=== PATIENT | female | born 1990 | race African-American/Black ===

== ENCOUNTER 2016-04-12 04:39 | Emergency (ER) | payer MEDICAID ==
[~2016-04-12] VITALS: Ht 167.6 cm; Wt 66.0 kg
[~2016-04-12 04:39] MED LIST: FERR325T PO; IBUP-232 PO; OXYC1TAB63 PO; PREN29TA PO; ZOFR4TAB3 SL
[2016-04-12 04:42] VITALS: BP 123/60; PULSE 77; RESP 16; TEMP 98; O2SAT 96
[2016-04-12] MEDS ORDERED: SODIUM CHLORIDE 0.9% FLUSH 5 ML FLUSH IVF PRN (05:00)
--- NOTE | 2016-04-12 05:11 | PD ---
HPI Chief Complaint: Abdominal Pain Time Seen by Provider: 05:09 Travel History International Travel<30 days: No Contact w/Intl Traveler<30days: No Traveled to known affect area: No History of Present Illness HPI 25-year-old female with history of no significant past medical issues, presents to the ER with lower abdominal discomfort and dysuria, feels like she has urinary urgency. She denies any fevers, nausea, vomiting, diarrhea, unusual vaginal discharge, or any other symptoms. Modifying Factors: None Associated Signs & Symptoms: Lower abdominal discomfort, urinary symptoms Risk Factors: None PFSH Past Medical History Hx Anticoagulant Therapy: No Cardiovascular Problems: No Chemotherapy: No Cerebrovascular Accident: No Diabetes: No Diminished Hearing: No Reproductive: Yes (OVARIAN CYST) Respiratory: No Immunizations Current: No Ulcer: Yes (STOMACH) ?: Not LMP: UNKNOWN : 2 Para: 1 : 1 Dilation and Curettage (D&C): Yes Social History Alcohol Use: Yes (OCC) Tobacco Use: Yes (03/30 PPD) Substance Use: Yes (MARIJUANA ) Allergies-Medications (Allergen,Severity, Reaction): Coded Allergies: No Known Allergies (Verified , 04/12/16) Reported Meds & Prescriptions Reported Meds & Active Scripts Active Oxycodone-Acetaminophen 5-325 mg Tab 1 Tab PO Q4H PRN Ferrous Sulfate 325 Mg Tab 325 Mg PO DAILY Ibuprofen 600 Mg Tab 600 Mg PO Q8HR PRN Plus Iron 29-1 mg ( Vit-Iron Carbonyl) 1 Tab Tab 1 Tab PO DAILY Zofran Odt (Ondansetron Odt) 4 Mg Tab 4 Mg SL Q6HR PRN Review of Systems Except as stated in HPI: all other systems reviewed are Neg Physical Exam Narrative GENERAL: Well-nourished, well-developed young -[place] female patient in no acute distress. SKIN: Warm and dry. HEAD: Normocephalic. EYES: No scleral icterus. No injection or drainage. NECK: Supple, trachea midline. CARDIOVASCULAR: Regular rate and rhythm without murmurs, gallops, or rubs. RESPIRATORY: Breath sounds equal bilaterally. No accessory muscle use. GASTROINTESTINAL: Abdomen soft, mild tenderness without guarding or rebound, nondistended. MUSCULOSKELETAL: No cyanosis, or edema. BACK: Nontender without obvious deformity. No CVA tenderness. Data Data Last Documented VS Vital Signs Date Time Temp Pulse Resp B/P Pulse Ox O2 Delivery O2 Flow Rate FiO2 04/12/16 04:42 98.0 77 16 123/60 96 Room Air Orders Complete Blood Count With Diff (04/12/16 04:59) Comprehensive Metabolic Panel (04/12/16 04:59) Lipase (04/12/16 04:59) Urinalysis - C+S If Indicated (04/12/16 04:59) Iv Access Insert/Monitor (04/12/16 04:59) Ecg Monitoring (04/12/16 04:59) Oximetry (04/12/16 04:59) Sodium Chloride 0.9% Flush (Ns Flush) (04/12/16 05:00) Ed Urine Pregnancytest Poc (04/12/16 04:59) Urine Culture (04/12/16 05:00) Labs Laboratory Tests Test 04/12/16 05:00 White Blood Count 8.4 TH/MM3 Red Blood Count 4.34 MIL/MM3 Hemoglobin 10.7 GM/DL Hematocrit 33.7 % Mean Corpuscular Volume 77.7 FL Mean Corpuscular Hemoglobin 24.7 PG Mean Corpuscular Hemoglobin 31.8 % Concent Red Cell Distribution Width 16.5 % Platelet Count 283 TH/MM3 Mean Platelet Volume 8.7 FL Neutrophils (%) (Auto) 47.8 % Lymphocytes (%) (Auto) 41.5 % Monocytes (%) (Auto) 8.9 % Eosinophils (%) (Auto) 0.7 % Basophils (%) (Auto) 1.1 % Neutrophils # (Auto) 4.0 TH/MM3 Lymphocytes # (Auto) 3.5 TH/MM3 Monocytes # (Auto) 0.8 TH/MM3 Eosinophils # (Auto) 0.1 TH/MM3 Basophils # (Auto) 0.1 TH/MM3 CBC Comment AUTO DIFF Urine Color YELLOW Urine Turbidity HAZY Urine pH 5.5 Urine Specific [place] 1.029 Urine Protein TRACE mg/dL Urine Glucose (UA) NEG mg/dL Urine Ketones NEG mg/dL Urine Occult Blood NEG Urine Nitrite NEG Urine Bilirubin NEG Urine Urobilinogen 2.0 MG/DL Urine Leukocyte Esterase LARGE Urine RBC 8 /hpf Urine WBC 24 /hpf Urine Squamous Epithelial 6 /hpf Cells Urine Mucus MOD /lpf Microscopic Urinalysis Comment CULTURE INDICATED Sodium Level 142 MEQ/L Potassium Level 3.5 MEQ/L Chloride Level 107 MEQ/L Carbon Dioxide Level 26.0 MEQ/L Anion Gap 9 MEQ/L Blood Urea Nitrogen 10 MG/DL Creatinine 0.83 MG/DL Estimat Glomerular Filtration 100 ML/MIN Rate Random Glucose 67 MG/DL Calcium Level 8.6 MG/DL Total Bilirubin 0.1 MG/DL Aspartate Amino Transf 18 U/L (AST/SGOT) Alanine Aminotransferase 18 U/L (ALT/SGPT) Alkaline Phosphatase 57 U/L Total Protein 7.0 GM/DL Albumin 3.8 GM/DL Lipase 275 U/L MDM Medical Decision Making Medical Screen Exam Complete: Yes Emergency Medical Condition: Yes Medical Record Reviewed: Yes Interpretation(s) Laboratory Tests Test 04/12/16 05:00 Hemoglobin 10.7 GM/DL (11.6-15.3) Hematocrit 33.7 % (35.0-46.0) Mean Corpuscular Volume 77.7 FL (80.0-100.0) Mean Corpuscular Hemoglobin 24.7 PG (27.0-34.0) Mean Corpuscular Hemoglobin 31.8 % Concent (32.0-36.0) Monocytes (%) (Auto) 8.9 % (0.0-8.0) Urine Turbidity HAZY (CLEAR) Urine Leukocyte Esterase LARGE (NEG) Urine RBC 8 /hpf (0-3) Urine WBC 24 /hpf (0-5) Urine Mucus MOD /lpf (OCC) Random Glucose 67 MG/DL (74-106) Total Bilirubin 0.1 MG/DL (0.2-1.0) Differential Diagnosis Urinary symptoms, lower abdominal discomfortUTI versus gastroenteritis versus Narrative Course Patient is not . Abdomen is fairly benign and I do not suspect an acute intra-abdominal process. Her urine shows a significant UTI. At this point, my plan would be to give her treatment for UTI and release her with follow-up to primary care physician. Return for any worsening in symptoms as necessary. The plan was discussed with her and she is agreeable. Diagnosis Primary Impression: Urinary tract infection Med/Other Pt SpecificInfo: Prescription(s) given Scripts Phenazopyridine (Pyridium)100 Mg Mdl399 Mg PO Q8H PRN (DYSURIA) #15 TAB Ref 0 Prov:Sanam Jiménez MD 04/12/16 Sulfamethoxazole-Trimethoprim (Bactrim DS)800-160 Mg Tab1 Tab PO BID #14 TAB Ref 0 Prov:Sanam Jiménez MD 04/12/16 Disposition: 01 DISCHARGE HOME Condition: Stable Sanam Jiménez MD Apr 12, 2016 05:11
[2016-04-12 05:13] LABS: BASOPHIL # 0.1 TH/MM3 (0-0.2); BASOPHIL % 1.1 % (0.0-2.0); EOSINOPHIL # 0.1 TH/MM3 (0-0.4); EOSINOPHIL % 0.7 % (0.0-4.0); HEMATOCRIT 33.7 % (35.0-46.0); LYMPH % 41.5 % (9.0-44.0); LYMPHOCYTE # 3.5 TH/MM3 (1.0-4.8); MEAN CELL VOLUME 77.7 FL (80.0-100.0); MEAN CORPUSCULAR HEMOGLOBIN 24.7 PG (27.0-34.0); MEAN CORPUSCULAR HGB CONC 31.8 % (32.0-36.0); MONO % 8.9 % (0.0-8.0); NEUT % 47.8 % (16.0-70.0); PLATELET COUNT 283 TH/MM3 (150-450); RED BLOOD COUNT 4.34 MIL/MM3 (4.00-5.30); RED CELL DISTRIBUTION WIDTH 16.5 % (11.6-17.2); WHITE BLOOD COUNT 8.4 TH/MM3 (4.0-11.0)
[2016-04-12 05:16] LABS: BLOOD, URINE NEG (NEG); COMMENT (UR) CULTURE INDICATED; CULTURE IF INDICATED CULTURE INDICATED; GLUCOSE,URINE NEG (NEG); KETONE, URINE NEG (NEG); MUCUS URINE MOD /lpf (OCC); NITRITE,URINE NEG (NEG); PH, URINE 5.5 (5.0-8.5); SQUAMOUS EPITHELIAL CELL URINE 6 /hpf (0-5); URINE COLOR YELLOW (YELLW/STRAW)
[2016-04-12 05:31] LABS: HEMO FLAGS AUTO DIFF
[2016-04-12 05:36] LABS: ANION GAP 9 MEQ/L (5-15); AST (GOT) 18 U/L (15-37); BLOOD UREA NITROGEN 10 MG/DL (7-18); CHLORIDE 107 MEQ/L (98-107); GLOMERULAR FILTRATION RATE 100 ML/MIN (>89); POTASSIUM 3.5 MEQ/L (3.5-5.1); SODIUM (NA) 142 MEQ/L (136-145)
[2016-04-12 05:40] LABS: ALKALINE PHOSPHATASE 57 U/L (45-117); ALT (GPT) 18 U/L (10-53); TOTAL BILIRUBIN ADULT 0.1 MG/DL (0.2-1.0)
[2016-04-12] MEDS ORDERED: IBUPROFEN 600 MG TAB PO ONE (05:45)
[2016-04-12] MEDS ORDERED: PHEN0.4T PO (05:45)
[2016-04-12] MEDS ORDERED: BACT800T5 PO (05:45)
[2016-04-12] MEDS ORDERED: SULFAMETHOXAZOLE-TRIMETHOPRIM DS 800-160 MG TAB PO ONE (05:45)
[2016-04-12 06:05] VITALS: BP 108/58
[2016-04-12 06:22] LABS: ACANTHOCYTES OCC (NORMAL); PLATELET ESTIMATE SMEAR NORMAL (NORMAL); PLATELET MORPHOLOGY NORMAL (NORMAL); SCAN/DIFF AUTO DIFF CONFIRMED; TARGET CELLS 1+ (NORMAL)
== END 2016-04-12 06:00 | disposition home or self-care (01) ==
LOC: NEPC 04:39
DX: N39.0 Urinary tract infection, site not specified (principal); B96.89 Other specified bacterial agents as the cause of diseases classified elsewhere
CPT/HCPCS: 80053; 81001; 83690; 84703; 85025; 87086; 99284

== ENCOUNTER 2016-04-29 16:31 | Emergency (ER) | payer MEDICAID ==
[~2016-04-29] VITALS: Ht 167.6 cm; Wt 70.5 kg
[~2016-04-29 16:31] MED LIST changes: +BACT800T5 PO; -FERR325T PO; -IBUP-232 PO; -OXYC1TAB63 PO; +PHEN0.4T PO; -PREN29TA PO; -ZOFR4TAB3 SL
[2016-04-29 16:32] VITALS: BP 128/85; PULSE 76; RESP 12; TEMP 98.2; O2SAT 97
--- NOTE | 2016-04-29 17:47 | PD ---
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 Per patient she had a seizure in the past. Per patient she's been having for this and discharged with back pain. No urinary problems. No bowel movement issues. Per patient she feels like she has a fever and chills but hasn't checked her actual temperature. She states that the pain in the back is 5 out of 10. Per patient the discharge started with bloody and then has been clear. Per patient his been ongoing. She denies any other medical problem. Denies . No abdominal pain. No chest pain. No shortness of breath. Has not seen anybody for this. Patient was here 2 weeks ago for UTI. PFSH Past Medical History Hx Anticoagulant Therapy: No Cardiovascular Problems: No Chemotherapy: No Cerebrovascular Accident: No Diabetes: No Diminished Hearing: No Reproductive: Yes (OVARIAN CYST) Respiratory: No Immunizations Current: No Ulcer: Yes (STOMACH) ?: Not LMP: 02/27/2016 : 2 Para: 1 : 1 Dilation and Curettage (D&C): Yes Past Surgical History Surgical History: No Previous Surgery Social History Alcohol Use: Yes (OCC) Tobacco Use: Yes (1/2 PPD) Substance Use: Yes (MARIJUANA ) Allergies-Medications (Allergen,Severity, Reaction): Coded Allergies: No Known Allergies (Verified , 04/29/16) Reported Meds & Prescriptions Reported Meds & Active Scripts Active No Active Prescriptions or Reported Medications Review of Systems Except as stated in HPI: all other systems reviewed are Neg Physical Exam Narrative GENERAL: SKIN: Warm and dry. HEAD: Atraumatic. Normocephalic. EYES: Pupils equal and round 4 mm reactive to light and accommodation. No scleral icterus. No injection or drainage. ENT: No nasal bleeding or discharge. Mucous membranes pink and moist. Tongue is midline. No uvula deviation. NECK: Trachea midline. No JVD. CARDIOVASCULAR: Regular rate and rhythm. No murmurs, S3, S4. RESPIRATORY: No accessory muscle use. Clear to auscultation. Breath sounds equal bilaterally. GASTROINTESTINAL: Abdomen soft, non-tender, nondistended. Hepatic and splenic margins not palpable. MUSCULOSKELETAL: Extremities without clubbing, cyanosis, or edema. No obvious deformities. Full range of motion of the upper and lower extremities bilaterally. 2+ pulses bilaterally. NEUROLOGICAL: Awake and alert. No obvious cranial nerve deficits. Motor grossly within normal limits. Five out of 5 muscle strength in the arms and legs. Normal speech. PSYCHIATRIC: Appropriate mood and affect; insight and judgment normal. Data Data Last Documented VS Vital Signs Date Time Temp Pulse Resp B/P Pulse Ox O2 Delivery O2 Flow Rate FiO2 04/29/16 17:06 17 04/29/16 16:32 98.2 76 128/85 97 Orders Urinalysis - C+S If Indicated (04/29/16 16:39) Ed Urine Pregnancytest Poc (04/29/16 16:40) Gc And Chlamydia Pcr (04/29/16 16:54) Wet Prep Profile (04/29/16 16:54) Urine Culture (04/29/16 18:20) Metronidazole (Flagyl) (04/29/16 19:30) Labs Laboratory Tests Test 04/29/16 18:20 Urine Color YELLOW Urine Turbidity HAZY Urine pH 6.0 Urine Specific [place] 1.024 Urine Protein TRACE mg/dL Urine Glucose (UA) NEG mg/dL Urine Ketones NEG mg/dL Urine Occult Blood SMALL Urine Nitrite NEG Urine Bilirubin NEG Urine Urobilinogen LESS THAN 2.0 MG/DL Urine Leukocyte Esterase MOD Urine RBC 2 /hpf Urine WBC 12 /hpf Urine Squamous Epithelial 5 /hpf Cells Urine Mucus FEW /lpf Microscopic Urinalysis Comment CULTURE INDICATED Clue Cells (Wet Prep) NONE SEEN Vaginal Trichomonas (Wet Prep) PRESENT Vaginal Yeast (Wet Prep) NONE SEEN MDM Medical Decision Making Medical Screen Exam Complete: Yes Emergency Medical Condition: Yes Medical Record Reviewed: Yes Interpretation(s) Wet prep positive for trichomonas UA negative Differential Diagnosis UTI versus STD versus vaginitis versus vaginal discharge Narrative Course 25-year-old female that presents to the ED for evaluation of vaginal discharge and pain. Patient was properly examined and was found to have signs and symptoms concerning for vaginitis. Labs ordered. Pelvic exam done and showed positive for Trichomonas. Patient was given 5.. Patient did have a UTI. Patient was given prescription for this. Follow with PCP. See ED worsening symptoms. Diagnosis Primary Impression: Trichomonas vaginitis Additional Impression: UTI (urinary tract infection) Qualified Code: N30.00 - Acute cystitis without hematuria Patient Instructions: General Instructions Additional Instructions: Take med as prescribed. F/u with PCP. See ED if worst No sex for two weeks. tylenol or motrin for pain. Med/Other Pt SpecificInfo: Prescription(s) given Scripts No Active Prescriptions or Reported Meds Disposition: 01 DISCHARGE HOME Condition: Stable Jed Alvarez Apr 29, 2016 17:47
[2016-04-29 19:03] LABS: BLOOD, URINE SMALL (NEG); COMMENT (UR) CULTURE INDICATED; CULTURE IF INDICATED CULTURE INDICATED; GLUCOSE,URINE NEG (NEG); KETONE, URINE NEG (NEG); MUCUS URINE FEW /lpf (OCC); NITRITE,URINE NEG (NEG); SQUAMOUS EPITHELIAL CELL URINE 5 /hpf (0-5); URINE COLOR YELLOW (YELLW/STRAW)
[2016-04-29] MEDS ORDERED: PHEN0.4T PO (19:27)
[2016-04-29] MEDS ORDERED: CIPR-9 PO (19:28)
[2016-04-29] MEDS ORDERED: metroNIDAZOLE 500 MG TAB PO ONE (19:30)
[2016-04-29 20:08] VITALS: BP 124/79; PULSE 72; RESP 16; O2SAT 98
[2016-04-29 20:58] LABS: CHLAMYDIA PCR NOT DETECTED (NOT DETECT); NEISSERIA PCR NOT DETECTED (NOT DETECT)
== END 2016-04-29 20:20 | disposition home or self-care (01) ==
LOC: NEPE 16:31
DX: A59.01 Trichomonal vulvovaginitis (principal); N30.00 Acute cystitis without hematuria; M54.9 Dorsalgia, unspecified; F17.200 Nicotine dependence, unspecified, uncomplicated; Z86.69 Personal history of other diseases of the nervous system and sense organs; Z87.42 Personal history of other diseases of the female genital tract; Z87.19 Personal history of other diseases of the digestive system
CPT/HCPCS: 81001; 84703; 87086; 87210; 87491; 87591; 99283

== ENCOUNTER 2016-07-27 06:46 | Emergency (ER) | payer SELFPAY ==
[~2016-07-27] VITALS: Ht 167.6 cm; Wt 60.0 kg
[~2016-07-27 06:46] MED LIST changes: -BACT800T5 PO; +CIPR-9 PO
[2016-07-27 06:48] VITALS: BP 141/65; PULSE 67; RESP 16; TEMP 98.7; O2SAT 97
--- NOTE | 2016-07-27 07:32 | PD ---
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 In the past similar presentation was bacterial vaginosis. No fever or vomiting. She reports monogamous relationship with 1 partner. Location genitourinary. Severity [id number]. Onset gradual. PFSH Past Medical History Hx Anticoagulant Therapy: No Cardiovascular Problems: No Chemotherapy: No Cerebrovascular Accident: No Diabetes: No Diminished Hearing: No Reproductive: Yes (OVARIAN CYST) Respiratory: No Immunizations Current: No Ulcer: Yes (STOMACH) Influenza Vaccination: No ?: Unknown : 2 Para: 1 : 1 Dilation and Curettage (D&C): Yes Past Surgical History Surgical History: No Previous Surgery Social History Alcohol Use: Yes (daily) Tobacco Use: Yes (1/2 PPD) Substance Use: No (smokes MARIJUANA ) Allergies-Medications (Allergen,Severity, Reaction): Coded Allergies: No Known Allergies (Verified , 07/27/16) Reported Meds & Prescriptions Reported Meds & Active Scripts Active Flagyl (Metronidazole) 500 Mg Tab 500 Mg PO BID 7 Days Review of Systems Except as stated in HPI: all other systems reviewed are Neg General / Constitutional: No: Fever Gastrointestinal: No: Nausea, Vomiting, Abdominal Pain Physical Exam Narrative GENERAL: 26-year-old female pleasant well-nourished well-developed and acute distress : Normal vulva. Minimal thick white discharge. No CMT. No adnexal mass or tenderness. SKIN: Focused skin assessment warm/dry. HEAD: Atraumatic. Normocephalic. EYES: Pupils equal and round. No scleral icterus. No injection or drainage. ENT: No nasal bleeding or discharge. Mucous membranes pink and moist. NECK: Trachea midline. No JVD. CARDIOVASCULAR: Regular rate and rhythm. No murmur appreciated. RESPIRATORY: No accessory muscle use. Clear to auscultation. Breath sounds equal bilaterally. GASTROINTESTINAL: Soft. Minimal suprapubic tenderness with deep palpation. No flank tenderness. MUSCULOSKELETAL: No obvious deformities. No clubbing. No cyanosis. No edema. NEUROLOGICAL: Awake and alert. No obvious cranial nerve deficits. Motor grossly within normal limits. Normal speech. PSYCHIATRIC: Appropriate mood and affect; insight and judgment normal. Data Data Last Documented VS Vital Signs Date Time Temp Pulse Resp B/P Pulse Ox O2 Delivery O2 Flow Rate FiO2 07/27/16 06:48 98.7 67 16 141/65 97 Vital signs reviewed Orders Gc And Chlamydia Pcr (07/27/16 07:43) Wet Prep Profile (07/27/16 07:43) Ua Includes Microscopic (07/27/16 07:43) Ed Urine Pregnancytest Poc (07/27/16 07:43) Metronidazole (Flagyl) (07/27/16 08:15) Labs Laboratory Tests Test 07/27/16 07/27/16 07:30 07:40 Urine Color YELLOW Urine Turbidity HAZY Urine pH 6.0 Urine Specific [place] 1.018 Urine Protein NEG mg/dL Urine Glucose (UA) NEG mg/dL Urine Ketones NEG mg/dL Urine Occult Blood NEG Urine Nitrite NEG Urine Bilirubin NEG Urine Urobilinogen LESS THAN 2.0 MG/DL Urine Leukocyte Esterase TRACE Urine RBC 2 /hpf Urine WBC 3 /hpf Urine Squamous Epithelial 7 /hpf Cells Urine Bacteria FEW /hpf Urine Mucus FEW /lpf Microscopic Urinalysis Comment Clue Cells (Wet Prep) PRESENT Vaginal Trichomonas (Wet Prep) NONE SEEN Vaginal Yeast (Wet Prep) NONE SEEN MDM Medical Decision Making Medical Screen Exam Complete: Yes Emergency Medical Condition: Yes Medical Record Reviewed: Yes Differential Diagnosis IUP, UTI, ectopic , ov torsion, appendicitis, TOA, cervicitis, BV, Trichomoniasis, ov cyst, hernia, mittelschmerz, pain from menstruation Narrative Course point of care urinalysis for is negative UA low probability uti wet prep positive for bv flagyl script f/u w employment training specialist, Dr Underwood senior publications specialist for [facility] today Diagnosis Primary Impression: BV (bacterial vaginosis) Referrals: Rachana Underwood MD 1 week Additional Instructions: You have a choice when it comes to health care, and we are glad that you chose [facility]. Hopefully, we have met your expectations on today's visit. You are welcome to return to [facility] at any time, as we are committed to meeting the health care needs of our community. PLEASE AVOID ALCOHOL WHEN YOU TAKE FLAGYL. Med/Other Pt SpecificInfo: Prescription(s) given Scripts Metronidazole (Flagyl)500 Mg Cck175 Mg PO BID 7 Days Ref 0 Prov:Josue Ramírez MD 07/27/16 Disposition: 01 DISCHARGE HOME Condition: Stable Josue Ramírez MD July 27, 2016 07:32 Josue Ramírez MD July 27, 2016 07:32
[2016-07-27 08:05] LABS: BACTERIA, URINE FEW /hpf; BLOOD, URINE NEG (NEG); GLUCOSE,URINE NEG (NEG); KETONE, URINE NEG (NEG); MUCUS URINE FEW /lpf (OCC); NITRITE,URINE NEG (NEG); SQUAMOUS EPITHELIAL CELL URINE 7 /hpf (0-5); URINE COLOR YELLOW (YELLW/STRAW)
[2016-07-27] MEDS ORDERED: METR-1 PO (08:13)
[2016-07-27] MEDS ORDERED: metroNIDAZOLE 500 MG TAB PO ONE (08:15)
[2016-07-27 10:23] LABS: CHLAMYDIA PCR NOT DETECTED (NOT DETECT); NEISSERIA PCR NOT DETECTED (NOT DETECT)
== END 2016-07-27 08:28 | disposition home or self-care (01) ==
LOC: NEPE 06:46
DX: N76.0 Acute vaginitis (principal); F17.200 Nicotine dependence, unspecified, uncomplicated; Z87.42 Personal history of other diseases of the female genital tract; Z87.19 Personal history of other diseases of the digestive system
CPT/HCPCS: 81001; 84703; 87210; 87491; 87591; 99283

== ENCOUNTER 2016-09-04 09:54 | Emergency (ER) | payer SELFPAY ==
[~2016-09-04] VITALS: Ht 167.6 cm; Wt 60.0 kg
[~2016-09-04 09:54] MED LIST changes: -CIPR-9 PO; +METR-1 PO; -PHEN0.4T PO
[2016-09-04 09:55] VITALS: BP 110/66; PULSE 72; RESP 20; TEMP 97.5; O2SAT 99
--- NOTE | 2016-09-04 10:22 | PD ---
HPI . 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 She rates the pain as severe without any further radiation. She has a very hard time describing the type of pain. She also admits to vaginal discharge for over one week. She describes it as thick and white. She says there is a chance of . She admits to high risk sexual behavior. Have a primary care provider or [facility]. She had one episode of vomiting today. At this present time she denies any nausea, vomiting, diarrhea or constipation. She denies any chest pain or other symptoms. PFSH Past Medical History Hx Anticoagulant Therapy: No Cardiovascular Problems: No Chemotherapy: No Cerebrovascular Accident: No Diabetes: No Diminished Hearing: No Reproductive: Yes (OVARIAN CYST) Respiratory: No Immunizations Current: No Ulcer: Yes (STOMACH) ?: Not LMP: 08/12/16 : 2 Para: 1 : 1 Dilation and Curettage (D&C): Yes Social History Alcohol Use: Yes (daily) Tobacco Use: Yes (1/2 PPD) Substance Use: No (smokes MARIJUANA ) Allergies-Medications (Allergen,Severity, Reaction): Coded Allergies: No Known Allergies (Verified , 07/27/16) Reported Meds & Prescriptions Reported Meds & Active Scripts Active Flagyl (Metronidazole) 500 Mg Tab 500 Mg PO BID 7 Days Flagyl (Metronidazole) 500 Mg Tab 500 Mg PO BID 7 Days Review of Systems General / Constitutional: No: Fever Eyes: No: Visual changes HENT: No: Headaches Cardiovascular: No: Chest Pain or Discomfort Respiratory: No: Shortness of Breath Gastrointestinal: Positive: Abdominal Pain (RLQ) Genitourinary: Positive: Discharge, No: Dysuria Musculoskeletal: No: Pain Skin: No Rash Neurologic: No: Weakness Psychiatric: No: Depression Endocrine: No: Polydipsia Hematologic/Lymphatic: No: Easy Bruising Physical Exam Narrative GENERAL: AAO x 3, no acute distress, Well-nourished, well-developed patient. SKIN: Warm and dry. No visible rashes or bruising. HEAD: Normocephalic and atraumatic. EYES: No scleral icterus. No injection or drainage. EOM intact, PERRLA ENT: No nasal drainage noted. Mucous membranes pink. Airway patent. NECK: Supple, trachea midline. No JVD. CARDIOVASCULAR: Regular rate and rhythm without murmurs, gallops, or rubs. RESPIRATORY: Breath sounds equal bilaterally. No accessory muscle use. No rhonchi or rales. GASTROINTESTINAL: Abdomen soft, non-tender, nondistended. Cannot reproduce pain on examination, but patient is moaning throughout encounter GENITAL: Mo RN present: no vaginal discharge appreciated on pelvic exam, there is a slight odor in the vaginal area. EXTREMITIES: No cyanosis or edema. BACK: Nontender without obvious deformity. No CVA tenderness. NEURO: CN II-12 intact, technical system analyst stenght normal b/l, UE and LE 5/5, no focal deficits PSYCH: AAO x 3, normal affect. Data Data Last Documented VS Vital Signs Date Time Temp Pulse Resp B/P Pulse Ox O2 Delivery O2 Flow Rate FiO2 09/04/16 09:55 97.5 72 20 110/66 99 Room Air Orders Gc And Chlamydia Pcr (09/04/16 10:27) Wet Prep Profile (09/04/16 10:27) Ed Urine Pregnancytest Poc (09/04/16 10:27) Complete Blood Count With Diff (09/04/16 10:31) Comprehensive Metabolic Panel (09/04/16 10:31) Lipase (09/04/16 10:31) Urinalysis - C+S If Indicated (09/04/16 10:31) Ct Abd/Pel W Iv Contrast(Rout) (09/04/16 10:31) Ketorolac Inj (Toradol Inj) (09/04/16 11:30) Diatrizoate Liq ( Gastroview Liq) (09/04/16 11:49) Iohexol 350 Inj (Omnipaque 350 Inj) (09/04/16 13:50) Lorazepam Inj (Ativan Inj) (09/04/16 14:45) Labs Laboratory Tests Test 09/04/16 10:45 White Blood Count 6.0 TH/MM3 Red Blood Count 4.58 MIL/MM3 Hemoglobin 12.0 GM/DL Hematocrit 36.8 % Mean Corpuscular Volume 80.3 FL Mean Corpuscular Hemoglobin 26.1 PG Mean Corpuscular Hemoglobin 32.5 % Concent Red Cell Distribution Width 15.3 % Platelet Count 254 TH/MM3 Mean Platelet Volume 8.9 FL Neutrophils (%) (Auto) 32.7 % Lymphocytes (%) (Auto) 53.6 % Monocytes (%) (Auto) 11.6 % Eosinophils (%) (Auto) 1.1 % Basophils (%) (Auto) 1.0 % Neutrophils # (Auto) 1.9 TH/MM3 Lymphocytes # (Auto) 3.2 TH/MM3 Monocytes # (Auto) 0.7 TH/MM3 Eosinophils # (Auto) 0.1 TH/MM3 Basophils # (Auto) 0.1 TH/MM3 CBC Comment DIFF FINAL Differential Comment Urine Color YELLOW Urine Turbidity CLEAR Urine pH 6.5 Urine Specific [place] 1.018 Urine Protein NEG mg/dL Urine Glucose (UA) NEG mg/dL Urine Ketones NEG mg/dL Urine Occult Blood NEG Urine Nitrite NEG Urine Bilirubin NEG Urine Urobilinogen LESS THAN 2.0 MG/DL Urine Leukocyte Esterase SMALL Urine RBC 2 /hpf Urine WBC 7 /hpf Urine Squamous Epithelial 2 /hpf Cells Urine Bacteria RARE /hpf Urine Mucus FEW /lpf Microscopic Urinalysis Comment CULT NOT INDICATED Clue Cells (Wet Prep) PRESENT Vaginal Trichomonas (Wet Prep) NONE SEEN Vaginal Yeast (Wet Prep) NONE SEEN Sodium Level 140 MEQ/L Potassium Level 4.1 MEQ/L Chloride Level 107 MEQ/L Carbon Dioxide Level 25.9 MEQ/L Anion Gap 7 MEQ/L Blood Urea Nitrogen 6 MG/DL Creatinine 0.96 MG/DL Estimat Glomerular Filtration 84 ML/MIN Rate Random Glucose 75 MG/DL Calcium Level 8.7 MG/DL Total Bilirubin 0.3 MG/DL Aspartate Amino Transf 22 U/L (AST/SGOT) Alanine Aminotransferase 20 U/L (ALT/SGPT) Alkaline Phosphatase 53 U/L Total Protein 7.2 GM/DL Albumin 3.9 GM/DL Lipase 228 U/L Chlamydia trachomatis DNA NOT DETECTED (PCR) Neisseria gonorrhoeae DNA NOT DETECTED (PCR) [facility] Medical Decision Making Medical Screen Exam Complete: Yes Emergency Medical Condition: Yes Medical Record Reviewed: Yes Differential Diagnosis PID, Gali vaginitis, appendicitis, gastroenteritis, nephrolithiasis Narrative Course 26-year-old female here with complaints of right lower abdominal pain. She also has vaginal discharge. Examination was done and there are no significant abnormalities found. Labs and CT scan of the abdomen and pelvis have been ordered. Patient admits to vomiting once this morning, but denies any nausea at the present moment. I offered antiemetic and she declined. Patient has clue cells consistent with bacterial vaginosis. I provided her with the metronidazole. Laboratory Tests Test 09/04/16 10:45 White Blood Count 6.0 TH/MM3 Red Blood Count 4.58 MIL/MM3 Hemoglobin 12.0 GM/DL Hematocrit 36.8 % Mean Corpuscular Volume 80.3 FL Mean Corpuscular Hemoglobin 26.1 PG Mean Corpuscular Hemoglobin 32.5 % Concent Red Cell Distribution Width 15.3 % Platelet Count 254 TH/MM3 Mean Platelet Volume 8.9 FL Neutrophils (%) (Auto) 32.7 % Lymphocytes (%) (Auto) 53.6 % Monocytes (%) (Auto) 11.6 % Eosinophils (%) (Auto) 1.1 % Basophils (%) (Auto) 1.0 % Neutrophils # (Auto) 1.9 TH/MM3 Lymphocytes # (Auto) 3.2 TH/MM3 Monocytes # (Auto) 0.7 TH/MM3 Eosinophils # (Auto) 0.1 TH/MM3 Basophils # (Auto) 0.1 TH/MM3 CBC Comment DIFF FINAL Differential Comment Urine Color YELLOW Urine Turbidity CLEAR Urine pH 6.5 Urine Specific [place] 1.018 Urine Protein NEG mg/dL Urine Glucose (UA) NEG mg/dL Urine Ketones NEG mg/dL Urine Occult Blood NEG Urine Nitrite NEG Urine Bilirubin NEG Urine Urobilinogen LESS THAN 2.0 MG/DL Urine Leukocyte Esterase SMALL Urine RBC 2 /hpf Urine WBC 7 /hpf Urine Squamous Epithelial 2 /hpf Cells Urine Bacteria RARE /hpf Urine Mucus FEW /lpf Microscopic Urinalysis Comment CULT NOT INDICATED Clue Cells (Wet Prep) PRESENT Vaginal Trichomonas (Wet Prep) NONE SEEN Vaginal Yeast (Wet Prep) NONE SEEN Sodium Level 140 MEQ/L Potassium Level 4.1 MEQ/L Chloride Level 107 MEQ/L Carbon Dioxide Level 25.9 MEQ/L Anion Gap 7 MEQ/L Blood Urea Nitrogen 6 MG/DL Creatinine 0.96 MG/DL Estimat Glomerular Filtration 84 ML/MIN Rate Random Glucose 75 MG/DL Calcium Level 8.7 MG/DL Total Bilirubin 0.3 MG/DL Aspartate Amino Transf 22 U/L (AST/SGOT) Alanine Aminotransferase 20 U/L (ALT/SGPT) Alkaline Phosphatase 53 U/L Total Protein 7.2 GM/DL Albumin 3.9 GM/DL Lipase 228 U/L Chlamydia trachomatis DNA NOT DETECTED (PCR) Neisseria gonorrhoeae DNA NOT DETECTED (PCR) CT scan of abd/pelvis with adnexal cyst. I discussed with patient. She will f/u with her PCP/Clean Up Person. She felt better prior to discharge. Patient verbalized understanding of instructions, questions were answered, and thanked me for their care. I advised them if their condition worsens, please return to the nearest emergency room for further care. Diagnosis Primary Impression: BV (bacterial vaginosis) Additional Impression: Adnexal cyst Patient Instructions: General Instructions Additional Instructions: Please return to emergency department if your symptoms return or worsen. Follow up with your primary care provider. Take medications as prescribed. 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 Med/Other Pt SpecificInfo: Prescription(s) given Scripts Metronidazole (Flagyl)500 Mg [id number] Mg PO BID 7 Days Ref 0 Prov:Glenn Yancey MD 09/04/16 Disposition: 01 DISCHARGE HOME Condition: Stable Heather Cates Sep 04, 2016 10:22
[2016-09-04 11:14] LABS: AUTOMATED NEUTROPHIL # 1.9 TH/MM3 (1.8-7.7); BASOPHIL # 0.1 TH/MM3 (0-0.2); EOSINOPHIL # 0.1 TH/MM3 (0-0.4); EOSINOPHIL % 1.1 % (0.0-4.0); HEMATOCRIT 36.8 % (35.0-46.0); HEMO FLAGS DIFF FINAL; LYMPH % 53.6 % (9.0-44.0); LYMPHOCYTE # 3.2 TH/MM3 (1.0-4.8); MEAN CELL VOLUME 80.3 FL (80.0-100.0); MEAN CORPUSCULAR HEMOGLOBIN 26.1 PG (27.0-34.0); MEAN CORPUSCULAR HGB CONC 32.5 % (32.0-36.0); MONO % 11.6 % (0.0-8.0); NEUT % 32.7 % (16.0-70.0); PLATELET COUNT 254 TH/MM3 (150-450); RED BLOOD COUNT 4.58 MIL/MM3 (4.00-5.30); RED CELL DISTRIBUTION WIDTH 15.3 % (11.6-17.2)
[2016-09-04 11:17] LABS: BACTERIA, URINE RARE /hpf; BLOOD, URINE NEG (NEG); COMMENT (UR) CULT NOT INDICATED; CULTURE IF INDICATED CULT NOT INDICATED; GLUCOSE,URINE NEG (NEG); KETONE, URINE NEG (NEG); MUCUS URINE FEW /lpf (OCC); NITRITE,URINE NEG (NEG); PH, URINE 6.5 (5.0-8.5); SQUAMOUS EPITHELIAL CELL URINE 2 /hpf (0-5); URINE COLOR YELLOW (YELLW/STRAW)
[2016-09-04 11:26] LABS: ANION GAP 7 MEQ/L (5-15); AST (GOT) 22 U/L (15-37); BICARBONATE 25.9 MEQ/L (21.0-32.0); BLOOD UREA NITROGEN 6 MG/DL (7-18); CHLORIDE 107 MEQ/L (98-107); POTASSIUM 4.1 MEQ/L (3.5-5.1); SODIUM (NA) 140 MEQ/L (136-145)
[2016-09-04 11:27] LABS: ALT (GPT) 20 U/L (10-53); GLOMERULAR FILTRATION RATE 84 ML/MIN (>89)
[2016-09-04] MEDS ORDERED: KETOROLAC TROMETHAMINE 30 MG/ML (IVP) VIAL IV PUSH ONE (11:30)
[2016-09-04 11:34] LABS: ALKALINE PHOSPHATASE 53 U/L (45-117); TOTAL BILIRUBIN ADULT 0.3 MG/DL (0.2-1.0)
[2016-09-04] MEDS ORDERED: DIATRIZOATE MEGLUM/DIATRIZOATE SOD 9 ML CUP ONE (11:49)
[2016-09-04] MEDS ORDERED: METR-1 PO (12:19)
[2016-09-04] MEDS ORDERED: IOHEXOL 350 MG/ML 10 ML VIAL (for RAD DIAG) IV ONE (13:50)
[2016-09-04 14:22] LABS: CHLAMYDIA PCR NOT DETECTED (NOT DETECT); NEISSERIA PCR NOT DETECTED (NOT DETECT)
--- NOTE | 2016-09-04 14:31 | RADRPT ---
EXAM DATE/TIME: 09/04/2016 13:39 [place] COMPARISON: No previous studies available for comparison. INDICATIONS : Abdomen pain as of this morning. IV CONTRAST: 85 cc Omnipaque 350 (iohexol) IV ORAL CONTRAST: Prescribed oral contrast ingested. RADIATION DOSE: 4.84 CTDIvol (mGy) MEDICAL HISTORY : Ulcers, ovarian cysts. SURGICAL HISTORY : ENCOUNTER: Initial ACUITY: 1 day PAIN SCALE: 3/10 LOCATION: Right anterior to posterior pain. TECHNIQUE: Volumetric scanning of the abdomen and pelvis was performed. Using automated exposure control and adjustment of the mA and/or kV according to patient size, radiation dose was kept as low as reasonably achievable to obtain optimal diagnostic quality images. FINDINGS: The lung bases are clear. Liver, spleen, pancreas and adrenal glands are unremarkable. There is sym metrical renal function. The region of the cecum and terminal ileum are unremarkable. There is a small cystic adnexal mass on the right measuring approximately 3 cm. There is no free flu id. CONCLUSION: 1. Cystic adnexal mass on the right approximately 3 cm without free fluid. 2. I do not see an etiology for the patient's abdominal pain. Dandre Capone MD FACR on September 04, 2016 at 13:49 Board Certified Radiologist. This report was verified electronically.
[2016-09-04] MEDS ORDERED: LORazepam 2 MG/ML VIAL IV PUSH ONE (14:45)
== END 2016-09-04 15:50 | disposition home or self-care (01) ==
LOC: NEPD 09:54
DX: N76.0 Acute vaginitis (principal); N83.201 Unspecified ovarian cyst, right side; F17.210 Nicotine dependence, cigarettes, uncomplicated
CPT/HCPCS: 74177; 80053; 81001; 83690; 84703; 85025; 87210; 87491; 87591; 96374; 99285; J1885; Q9963; Q9967

== ENCOUNTER 2017-06-30 07:37 | Emergency (ER) | payer SELFPAY ==
[~2017-06-30] VITALS: Ht 167.6 cm; Wt 65.0 kg
[2017-06-30 07:44] VITALS: BP 147/77; PULSE 81; RESP 16; TEMP 98.6; O2SAT 100
[2017-06-30] MEDS ORDERED: traMADol HCL 50 MG TAB PO ONE (08:00)
[2017-06-30] MEDS ORDERED: IBUPROFEN 600 MG TAB PO ONE (08:00)
--- NOTE | 2017-06-30 08:04 | PD ---
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 Describes the pain as crampy, 6 out of 10, nonradiating, and usually she is spots at this time is heavier flow. No alleviating or aggravating factors. Patient denies any associated factors such as fever, rash, chest pain, back pain, flank pain, nausea vomiting diarrhea. No known drug allergy Patient denies any significant past medical or surgical history. Per chart review patient has a history of stomach ulcer, ovarian cyst status post D&C, and there is also positive marijuana and tobacco use. Patient states that she receives Deppe shots, the last one was in March, and because of this she engages in unprotected intercourse PFSH Past Medical History Hx Anticoagulant Therapy: No Cardiovascular Problems: No Chemotherapy: No Cerebrovascular Accident: No Diabetes: No Diminished Hearing: No Reproductive: Yes (OVARIAN CYST) Respiratory: No Immunizations Current: No Ulcer: Yes (STOMACH) : 2 Para: 1 : 1 Dilation and Curettage (D&C): Yes Social History Alcohol Use: Yes (daily) Tobacco Use: Yes (1/2 PPD) Substance Use: Yes (smokes MARIJUANA ) Allergies-Medications (Allergen,Severity, Reaction): Coded Allergies: No Known Allergies (Verified Adverse Reaction, Unknown, 06/30/17) Reported Meds & Prescriptions Reported Meds & Active Scripts Active No Active Prescriptions or Reported Medications Review of Systems General / Constitutional: No: Fever Eyes: No: Visual changes HENT: No: Headaches Cardiovascular: No: Chest Pain or Discomfort Respiratory: No: Shortness of Breath Gastrointestinal: No: Abdominal Pain Genitourinary: Positive: Vaginal Bleeding Musculoskeletal: No: Pain Skin: No Rash Neurologic: No: Weakness Psychiatric: No: Depression Endocrine: No: Polydipsia Hematologic/Lymphatic: No: Easy Bruising Physical Exam Narrative GENERAL: SKIN: Warm and dry. HEAD: Atraumatic. Normocephalic. EYES: Pupils equal and round. No scleral icterus. No injection or drainage. ENT: No nasal bleeding or discharge. Mucous membranes pink and moist. NECK: Trachea midline. No JVD. CARDIOVASCULAR: Regular rate and rhythm. RESPIRATORY: No accessory muscle use. Clear to auscultation. Breath sounds equal bilaterally. GASTROINTESTINAL: Abdomen soft, non-tender, nondistended. MUSCULOSKELETAL: Extremities without clubbing, cyanosis, or edema. No obvious deformities. NEUROLOGICAL: Awake and alert. No obvious cranial nerve deficits. Motor grossly within normal limits. Five out of 5 muscle strength in the arms and legs. Normal speech. PSYCHIATRIC: Appropriate mood and affect; insight and judgment normal. Data Data Last Documented VS Vital Signs Date Time Temp Pulse Resp B/P (MAP) Pulse Ox O2 Delivery O2 Flow Rate FiO2 06/30/17 07:44 98.6 81 16 147/77 (100) 100 Orders Orders Urinalysis - C+S If Indicated (06/30/17 07:55) Ed Urine Pregnancytest Poc (06/30/17 07:55) Ibuprofen (Motrin) (06/30/17 08:00) Tramadol (Ultram) (06/30/17 08:00) Labs Laboratory Tests Test 06/30/17 08:00 Urine Color LIGHT-YELLOW Urine Turbidity CLEAR Urine pH 7.5 Urine Specific [place] 1.007 Urine Protein NEG mg/dL Urine Glucose (UA) NEG mg/dL Urine Ketones NEG mg/dL Urine Occult Blood MOD Urine Nitrite NEG Urine Bilirubin NEG Urine Urobilinogen LESS THAN 2.0 MG/DL Urine Leukocyte Esterase NEG Urine RBC 19 /hpf Urine WBC 1 /hpf Urine Squamous Epithelial Cells 1 /hpf Urine Bacteria RARE /hpf Microscopic Urinalysis Comment CULT NOT INDICATED MDM Medical Decision Making Medical Screen Exam Complete: Yes Emergency Medical Condition: Yes Medical Record Reviewed: Yes Differential Diagnosis related threatened AB versus missed AB versus incomplete AB versus non - related such as dysfunctional uterine bleeding versus UTI Narrative Course Negative past UA is negative for any UTI Diagnosis Primary Impression: Dysfunctional uterine bleeding Patient Instructions: Dysfunctional Uterine Bleeding (ED), General Instructions Scripts Tramadol (Ultram) 50 Mg Tab 50 MG PO Q8H Y for PAIN, #15 TAB 0 Refills Prov: Tino Machado MD 06/30/17 Disposition: 01 DISCHARGE HOME Condition: Stable Tino Machado MD Jun 30, 2017 08:04
[2017-06-30 08:20] LABS: BACTERIA, URINE RARE /hpf; BILIRUBIN, URINE NEG (NEG); BLOOD, URINE MOD (NEG); GLUCOSE,URINE NEG (NEG); KETONE, URINE NEG (NEG); NITRITE,URINE NEG (NEG); PH, URINE 7.5 (5.0-8.5); SQUAMOUS EPITHELIAL CELL URINE 1 /hpf (0-5); URINE COLOR LIGHT-YELLOW (YELLW/STRAW); URINE LEUKOCYTE ESTERASE NEG (NEG)
[2017-06-30] MEDS ORDERED: TRAM50 PO (08:40)
[2017-06-30 09:25] VITALS: BP 120/83; RESP 16; TEMP 97.8
== END 2017-06-30 09:25 | disposition home or self-care (01) ==
LOC: NEPE 07:37
DX: N93.8 Other specified abnormal uterine and vaginal bleeding (principal); F17.210 Nicotine dependence, cigarettes, uncomplicated; F12.90 Cannabis use, unspecified, uncomplicated
CPT/HCPCS: 81001; 84703; 99283

== ENCOUNTER 2017-08-23 06:00 | Emergency (ER) | payer MEDICAID ==
[~2017-08-23] VITALS: Ht 167.6 cm; Wt 55.0 kg
[~2017-08-23 06:00] MED LIST changes: -METR-1 PO; +TRAM50 PO
[2017-08-23 06:09] VITALS: BP 123/58; PULSE 114; RESP 20; TEMP 97.7; O2SAT 98
[2017-08-23] MEDS ORDERED: TYLETAB34 PO (06:43)
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
[2017-08-23] MEDS ORDERED: TETANUS/DIPHTHERIA TOXOID ADULT 0.5 ML VIAL IM ONE (06:45)
[2017-08-23] MEDS ORDERED: IBUP1TAB7 PO (07:10)
[2017-08-23] MEDS ORDERED: ACETAMINOPHEN/HYDROcodone 325 MG/5 MG TAB PO ONE (07:15)
== END 2017-08-23 07:50 | disposition home or self-care (01) ==
LOC: NEPD 06:00
DX: S61.200A Unspecified open wound of right index finger without damage to nail, initial encounter (principal); X58.XXXA Exposure to other specified factors, initial encounter; F17.200 Nicotine dependence, unspecified, uncomplicated; F12.90 Cannabis use, unspecified, uncomplicated; Z23 Encounter for immunization
CPT/HCPCS: 90471; 90714